=== PATIENT | female | born 1945 | race Caucasian/White ===

== ENCOUNTER 2025-07-20 18:28 | Inpatient (IN) | payer MEDICARE, SELFPAY ==
[2025-07-20 14:05] VITALS: BP 206/115
--- NOTE | 2025-07-20 14:50 | ED.GENMED ---
History of Present Illness
General
Chief Complaint: Abdominal Symptoms
Time Seen by Provider: 07/20/25 14:18
History of Present Illness
History of Present Illness:
Patient presents to the emergency department with nausea, vomiting, epigastric discomfort. Recent diagnosis of duodenal ulcer from H. pylori. She was started on triple therapy with metronidazole, tetracycline, omeprazole. Notes that over the past
few days she has had incredible amounts of nausea and vomiting. She has not been able to tolerate any p.o. intake and feels very weak. Denies fevers or chills but endorses some rhinorrhea. No sore throat or cough. No body aches. Denies
diarrhea. Mild epigastric discomfort but no intense abdominal pain
Phy Exam
Physical Exam
Physical Exam:
GENERAL APPEARANCE: No acute distress, generally weak appearing
EYES lids/conjunctiva normal
EARS/NOSE/THROAT dry mucous membranes
HEAD/NECK Normocephalic atraumatic, neck is supple.
RESPIRATORY respiratory effort normal, speaks in full sentences, no accessory muscle use. Lungs clear to auscultation without rhonchi, wheezes, rales
CARDIAC Regular rate and rhythm, no edema.
ABDOMINAL Soft, mild tenderness in the epigastric region
MUSCLES/EXTREMITIES No abnormal range of motion, no swelling.
SKIN Warm, pink and dry. No rashes
NEUROLOGICAL Speech is clear and appropriate. Normal level of consciousness. 5/5 strength in all extremities.
PSYCH Normal mood and affect. Judgement/competence is appropriate
Course
Orders/Labs/Results
Orders:
Orders
07/20/25 14:38
0.9% Sodium Chloride 1000 ml [Nss] 1,000 ml IV BOLUS
Ondansetron Injectable [Zofran] 4 mg IV NOW STA
07/20/25 14:54
Pantoprazole [Protonix IV] 40 mg IV NOW STA
07/20/25 15:32
COVID-19 Antigen Urgent
Source: Nasal Swab
Complete Blood Count/With Diff Urgent
Comprehensive Metabolic Panel Urgent
Lipase Urgent
Influenza A+B Rapid Molecular Urgent
DELILAH Source: Nasal Swab
Specimen Description:
07/20/25 16:15
CT Abd/pelvis Wo Iv Cont Urgent
Comment:
Reason For Exam: pancreatitis, vomiting, epigastric pain
07/20/25 16:45
Ondansetron HCl [Zofran] 4 mg PO NOW STA
07/20/25 16:46
Lactated Ringers [Lr] 1,000 ml IV BOLUS
07/20/25 16:51
Ondansetron Injectable [Zofran] 4 mg IV NOW STA
07/20/25 17:12
Urinalysis Reflex To Culture Urgent
Date Specimen was Collected: 07/20/25
Time Specimen was Collected: 15:41
Abnormal Lab Results
07/20/25
15:32
RBC 3.71 L 10^6/uL
(4.20-5.40)
Hgb 11.3 L g/dL
(12.0-16.0)
Hct 32.1 L %
(37.0-47.0)
Absolute Neuts (auto) 6.8 H 10^3/uL
(1.4-6.5)
Neutrophils % 76.7 H %
(42.2-75.2)
Lymphocytes % 18.0 L %
(20.5-51.1)
Chloride 108 H mmol/L
(98-107)
Carbon Dioxide 21 L mmol/L
(22-30)
BUN 37 H mg/dl
(7-17)
Creatinine 1.5 H mg/dL
(0.6-1.0)
Glucose 123 H mg/dl
(70-99)
Calcium 12.4 H mg/dl
(8.4-10.2)
AST 42 H U/L
(14-36)
Alkaline Phosphatase 148 H U/L
(38-126)
Lipase 989 H U/L
(23-300)
07/20/25 15:32
07/20/25 15:32
Vital Signs
Initial and Last Documented VS:
Initial Vital Signs
Temp Pulse Resp BP Pulse Ox
97.8 F 89 16 206/115 99
07/20/25 14:05 07/20/25 14:05 07/20/25 14:05 07/20/25 14:05 07/20/25 14:05
Last Documented Vital Signs
Temp Pulse Resp BP Pulse Ox
97.8 F 73 13 139/72 97
07/20/25 14:05 07/20/25 16:00 07/20/25 16:00 07/20/25 15:11 07/20/25 16:08
*Pulse Oximetry
SaO2: 99
Oxygen Mode of Delivery: Room air
Patient hypoxic: no
*Critical Care Note
Total Time (30-74mins, 75-104mins- exclusive of procedures): Not Applicable
ED Attending Note
ED Attending Note
ED Attending Note:
hx of recent endoscopy with duodenal ulcers, H pylori positive
started on triple therapy but has been having worsening nausea/vomiting/epigastric discomfort
minimal PO intake over past few days
she is afebrile, hemodynamically stable
she appears weak and dehydrated. has tenderness in the epigastrium
labs with Cr 1.5 (apparently has some ckd but no baseline on file). Calcium 12.4. Lipase 989. bili/lfts look okay
CT abd/pelv without contrast does not show any obvious abnormality
giving IVF , antiemetics, IV PPI
admitting to hospitalist for possible pancreatitis
-
Portions of this chart may have been created with voice recognition software.� Occasional wrong word or��sound alike� substitutions may have occurred due to the inherent limitations of voice recognition software.
Discharge Plan
Departure
Patient Disposition: Admit
Date of Disposition: 07/20/25
Time of Disposition: 17:28
Presentation/result/management discussed w/ accepting MD/DO: Hospitalist
Discharge Problem:
Pancreatitis, Hypercalcemia, Dehydration
Prescriptions:
No Action
omeprazole 20 mg Tablet,Delayed Release (Dr/Ec)
20 mg PO DAILY
Referrals:
Demetris Haynes MD [Family Provider, Internal Medicine]
Interventions
Interventions:
*Risk Screen - Suicide Last Done: 07/20/25 15:36
*General Assessment Last Done: 07/20/25 15:36
*Neglect/Abuse Screening Last Done: 07/20/25 15:36
*ED COVID-19 Vaccine History Last Done: 07/20/25 15:36
*ED Influenza Vaccine History Last Done: 07/20/25 15:36
[facility] Fall Risk Assessment Tool Last Done: 07/20/25 15:40
BE-Agiffg-Siecgcjjhg Assessment Last Done: 07/20/25 16:08
Discharge Date and Time
Print Language: LATVIAN
[2025-07-20 15:11] VITALS: BP 139/72
[2025-07-20] MEDS: PROTONIX IV 40 MG IV (15:33)
[2025-07-20] MEDS: ZOFRAN 4 MG IV ×2 (15:33→17:11)
[2025-07-20] MEDS: NSS 1000 IV (15:33)
[2025-07-20 15:40] VITALS: BMI 30.3
[2025-07-20 15:44] LABS: Hematocrit 32.1 % (37.0-47.0); Hemoglobin 11.3 g/dL (12.0-16.0); Mean Corp Hgb Conc. 35.2 g/dL (33.0-37.0); Mean Corpuscular Volume 86.5 fL (81.0-99.0); Nucleated Red Blood Cells % 0 %; Platelet Count 334 10^3/uL (130-400); Red Cell Dist. Width 12.5 % (11.5-14.5)
[2025-07-20 16:00] LABS: COVID-19 Antigen Negative (Negative)
[2025-07-20 16:12] LABS: ALT (SGPT) 33 U/L (0-35); AST (SGOT) 42 U/L (14-36); Albumin 3.9 g/dl (3.5-5.0); Alkaline Phosphatase 148 U/L (38-126); Blood Urea Nitrogen 37 mg/dl (7-17); Calcium 12.4 mg/dl (8.4-10.2); Carbon Dioxide 21 mmol/L (22-30); Chloride 108 mmol/L (98-107); Estimated Creatinine Clearance 31 ml/min; Glucose 123 mg/dl (70-99); Lipase 989 U/L (23-300); Potassium 3.9 mmol/L (3.5-5.1); Sodium 136 mmol/L (135-145); Total Protein 6.3 g/dl (6.3-8.2); eGFR 35.01
[2025-07-20] MEDS: LR 1000 IV ×2 (17:11→21:07)
--- NOTE | 2025-07-20 18:20 | HPS.HSE ---
Family Physician
-
Family Physician: Demetris Haynes
Chief Complaint
-
nausea/vomiting/poor oral intake
History of Present Illness
Patient is an 80-year-old female with a recent diagnosis of a stomach ulcer which is positive for H. pylori. This was done for a family history of stomach cancer in her father. Patient was started on treatment for H. pylori and has had a bad
reaction to the medications. She started Pepcid, Pepto-Bismol, tetracycline, Flagyl on the day after Thanksgiving. For the last 3 days she has had trouble with eating and drinking, poor oral appetite, nausea and vomiting. She admits to chills but
no fevers. She denies any significant diarrhea but does admit to constipation with dark brown pebble-like stools. Last week, patient passed out on the bathroom floor. She denies any significant abdominal pain until palpation.
CAT scan done in the emergency department without oral or IV contrast is essentially unremarkable. Lipase elevated at 900 but I am not convinced that this is pancreatitis. Patient will be admitted.
Medical History
Past Medical History
Past Medical History: Reports Other
Additional Past Medical History:
Type 2 diabetes mellitus
Peptic ulcer disease with recent H. pylori diagnosis
Trigeminal neuralgia
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
Osteoarthritis
Chronic kidney disease stage unknown
Obstructive sleep apnea--CPAP requiring
Primary hyperparathyroidism
Past Surgical History: Reports Other
Additional Past Surgical History:
Cholecystectomy
Tonsillectomy
Bilateral knee replacements
Cataract surgery
Social History
Tobacco: Former Smoker (Quit tobacco years ago)
Alcohol: None
Drug: None
Personal:
Living: Alone
Family History
Family History: Other (Father had stomach cancer, father side had Parkinson's disease--mother side had diabetes)
Allergies / Home Medications
Allergies reflects when Allergies were last updated in [employer].
Home Medications with original date entered in [employer]
Allergy/Medication List:
Allergies
Allergy/AdvReac Type Severity Reaction Status Date / Time
carbamazepine (From Tegretol) Allergy Rash Verified 07/20/25 14:09
Penicillins Allergy Rash Verified 07/20/25 14:09
Home Medications
allopurinol 100 mg tablet 100 mg PO DAILY Gout 07/20/25
aspirin 81 mg tablet,delayed release 81 mg PO DAILY 07/20/25
atorvastatin 80 mg tablet (Lipitor) 80 mg PO DAILY High Cholesterol 07/20/25
bupropion HCl 150 mg 24 hr tablet, extended release (Wellbutrin XL) 150 mg PO DAILY Mental Health/Anxiety 07/20/25
cholecalciferol (vitamin D3) 50 mcg (2,000 unit) tablet (Vitamin D3) 50 mcg PO DAILY Supplement 07/20/25
cinacalcet 60 mg tablet 60 mg PO DAILY 07/20/25
clarithromycin 500 mg tablet 500 mg PO BID Infection 07/20/25
cyanocobalamin (vitamin B-12) 500 mcg tablet 500 mcg PO DAILY Supplement 07/20/25
furosemide 40 mg tablet (Lasix) 40 mg PO DAILY Fluid Retention/Swelling 07/20/25
gabapentin 800 mg tablet 800 mg PO HS Neurological Condition 07/20/25
guar gum 1 tbsp PO DAILY Constipation 07/20/25
icosapent ethyl 1 gram capsule 2 g PO BID Supplement 07/20/25
magnesium oxide 200 mg PO DAILY Supplement 07/20/25
metformin 500 mg tablet 500 mg PO QPM Diabetes 07/20/25
omeprazole 20 mg tablet,delayed release 40 mg PO BID Gastrointestinal Issue 07/20/25
therapeutic multivitamin 1 tab PO DAILY Supplement 07/20/25
zonisamide 50 mg capsule 150 mg PO DAILY 07/20/25
Review of Systems
-
History Source: Patient
Constitutional: Reports Chills; Denies Fever
EENT: Reports No Symptoms
Respiratory: Reports No Symptoms; Denies Cough or Trouble Breathing
Cardiac: Reports No Symptoms; Denies Chest Pain, Diaphoresis or Palpitations
Abdomen/GI: Reports Nausea, Vomiting and Constipated; Denies Abdominal Pain or Diarrhea
: Reports No Symptoms
Musculoskeletal: Reports Joint Pain
Skin: Reports No Symptoms
Neurological: Reports No Symptoms; Denies Dizzy or Headache
Endocrine: Reports No Symptoms
Hematologic/Lymphatic: Reports No Symptoms
Psych: Reports No Symptoms
Physical Exam
Vital Signs
Vital Signs
Temp Pulse Resp BP Pulse Ox
97.8 F 73 13 139/72 97
07/20/25 14:05 07/20/25 16:00 07/20/25 16:00 07/20/25 15:11 07/20/25 16:08
Physical Exam
General: Well Developed, Well Nourished and No Apparent Distress
HEENT: NormoCephalic, Anicteric and Other (exophthalmos left eye--mild ptosis and right facial droop from previous Smith's palsy)
Respiratory: Clear; No Wheezes, Rales, Rhonchi or Crackles
Cardiac: S1/S2 and Regular Rhythm
GI: Soft, Non Distended, Normal Bowel Sounds and Tender (Minimal tenderness in the epigastric area no guarding or rebound)
Rectal: Deferred by Provider
Musculoskeletal: No Clubbing, No Cyanosis and No Edema
Skin: Warm and Dry
Neuro: Awake, Alert and Nonfocal/grossly intact
Psych: Calm
Laboratory Results
-
07/20/25 15:32
07/20/25 15:32
Laboratory Results
Total Bilirubin 0.6 mg/dl (0.2-1.3) 07/20/25 15:32
AST 42 U/L (14-36) H 07/20/25 15:32
ALT 33 U/L (0-35) 07/20/25 15:32
Alkaline Phosphatase 148 U/L (38-126) H 07/20/25 15:32
Lipase 989 U/L (23-300) H 07/20/25 15:32
Impression/Plan
-
Patient is an 80-year-old female
Nausea/vomiting--this is likely due to the intolerance of Flagyl from her H. pylori treatment--I do not suspect pancreatitis or any other GI issues--patient has had poor oral intake for the last 3 days or so--ADMIT--continue lactated Ringer's, start
Protonix drip, IV doxycycline, IV Flagyl--clear liquid diet--Zofran--- once patient is able to tolerate solid food we will transition over to oral treatment for her H. pylori
Type 2 diabetes mellitus--patient is no longer taking metformin as it was stopped by her employee placement specialist--start sliding scale insulin--check hemoglobin A1c
Peptic ulcer disease with H. pylori--patient was recently diagnosed the day after and started taking Pepcid, Pepto-Bismol, tetracycline, Flagyl but is not tolerating the treatment--for now we will place on IV Protonix drip, IV
doxycycline and IV Flagyl
Trigeminal neuralgia--patient takes gabapentin sporadically--no active symptoms
Chronic kidney disease --stage unknown but presumed stage III--renal dose medications--follow creatinine
Primary hyperparathyroidism--continue Cinacalcet, continue IV fluids--follow calcium level
Vitamin B12 deficiency--continue B12 supplements
Hyperlipidemia--hold Lipitor for now
Obstructive sleep apnea--CPAP--patient may use her own if she has it
Gout--continue allopurinol as tolerated
Shingles with Smith's palsy--noted
DVT prophylaxis
CODE STATUS--full code
[2025-07-20 19:39] LABS: Urine Character Clear (Clear)
[2025-07-20 19:50] VITALS: BP 151/77
[2025-07-20 19:55] LABS: Urine Red Blood Cell 0-2 /HPF (0-2)
[2025-07-20 20:13] VITALS: BMI 29.9
[2025-07-20] MEDS: ZONEGRAN PO (20:45)
[2025-07-20] MEDS: FLAGYL 500 MG 100 IV (21:12)
[2025-07-20] MEDS: PROTONIX 100 IV (21:41)
[2025-07-20 22:18] LABS: Glucose - Point of Care 90 mg/dl (70-99)
--- NOTE | 2025-07-20 22:36 | TRANSFER ---
Received pt from ED on stretcher at 1945 w dx of intolerance to medication - family at the bedside. Pt denies pain or discomfort and denied n/v. VS WNL. IVF and IV medications as ordered. Patient is refusing to take any PO medication d/t recent
medication intolerance with n/v. This RN explained the importance of taking the PO meds, patient verbalized that she hasn't taken these medications in days and does not feel like she needs to take them now. Assessments as documented. Call patel
within reach, bed in lowest position. Care ongoing.
[2025-07-20] MEDS: VIBRAMYCIN 260 MG IV (22:49)
[2025-07-20] MEDS: NEURONTIN PO (23:00)
[2025-07-20 23:29] VITALS: BP 160/76
[2025-07-21] MEDS: FLAGYL 500 MG 100 IV ×3 (04:40→21:47)
[2025-07-21 06:00] VITALS: BMI 29.9
[2025-07-21] MEDS: PROTONIX 100 IV ×2 (07:29→17:19)
[2025-07-21] MEDS: VIBRAMYCIN 260 MG IV ×2 (07:30→21:51)
[2025-07-21 07:51] LABS: Hematocrit 27.2 % (37.0-47.0); Hemoglobin 9.4 g/dL (12.0-16.0); Mean Corp Hgb Conc. 34.6 g/dL (33.0-37.0); Mean Corpuscular Volume 85.8 fL (81.0-99.0); Platelet Count 289 10^3/uL (130-400); Red Cell Dist. Width 13.0 % (11.5-14.5)
[2025-07-21 08:16] LABS: ALT (SGPT) 39 U/L (0-35); AST (SGOT) 50 U/L (14-36); Albumin 3.1 g/dl (3.5-5.0); Alkaline Phosphatase 127 U/L (38-126); Blood Urea Nitrogen 37 mg/dl (7-17); Calcium 11.8 mg/dl (8.4-10.2); Carbon Dioxide 18 mmol/L (22-30); Chloride 111 mmol/L (98-107); Estimated Creatinine Clearance 30 ml/min; Glucose 79 mg/dl (70-99); Lipase 737 U/L (23-300); Magnesium 1.9 mg/dl (1.6-2.3); Potassium 3.7 mmol/L (3.5-5.1); Sodium 137 mmol/L (135-145); Total Protein 5.2 g/dl (6.3-8.2); eGFR 35.01
[2025-07-21 08:17] LABS: Glucose - Point of Care 74 mg/dl (70-99)
[2025-07-21 08:32] VITALS: BP 152/83
--- NOTE | 2025-07-21 08:37 | PTCARENOTE ---
P feeling slightly nauseous, juices encouraged due to bs of 74. PO meds to be given when pt feels a little better.
[2025-07-21 08:45] LABS: TSH 0.73 uIU/ml (0.47-4.68)
[2025-07-21 10:17] LABS: Troponin I 0.027 ng/ml
[2025-07-21] MEDS: D5/0.9% SODIUM CHLORIDE 1000 IV (10:30)
[2025-07-21] MEDS: VITAMIN B-12 PO (10:47)
[2025-07-21] MEDS: ZONEGRAN PO (10:47)
[2025-07-21] MEDS: WELLBUTRIN XL (24 hour extended release) PO (10:47)
[2025-07-21] MEDS: ZYLOPRIM PO (10:47)
[2025-07-21] MEDS: VITAMIN D3 (cholecalciferol) PO (10:47)
[2025-07-21] MEDS: SENSIPAR PO (10:48)
[2025-07-21] MEDS: LASIX PO (10:48)
[2025-07-21] MEDS: LR IV (10:49)
--- NOTE | 2025-07-21 11:25 | W.PN.HOSP.TC ---
Today's Communication/Plan
-
change IVF to D5NSS
add bismuth to H.Pylori regimen
if truly cannot tolerate, consider GI or ID consult for alternative treatment plan
Assessment / Plan
Assessment / Plan
pt is an 80 year old female
Nausea/vomiting--this is likely due to the intolerance of Flagyl from her H. 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
Protonix drip, IV doxycycline, IV Flagyl--clear liquid diet--Zofran--- once patient is able to tolerate solid food we will transition over to oral treatment for her H. pylori--hopefully the IV flagyl will not make her nauseous either (consider
stopping IF nausea not abating) but would try to keep for H. Pylori treatment--adding bismuth back to regimen too
Type 2 diabetes mellitus--patient is no longer taking metformin as it was stopped by her automation lead--start sliding scale insulin--hemoglobin A1c pending
Peptic ulcer disease with H. pylori--patient was recently diagnosed the day after and started taking Pepcid, Pepto-Bismol, tetracycline, Flagyl but is not tolerating the treatment--for now we will place on IV Protonix drip, IV
doxycycline and IV Flagyl--add bismuth back
Trigeminal neuralgia--patient takes gabapentin sporadically--no active symptoms
Chronic kidney disease --stage unknown but presumed stage III--renal dose medications--follow creatinine--stable at 1.5
Primary hyperparathyroidism--continue Cinacalcet, continue IV fluids--follow calcium level
Vitamin B12 deficiency--continue B12 supplements
Hyperlipidemia--hold Lipitor for now
Obstructive sleep apnea--CPAP--patient may use her own if she has it
Gout--continue allopurinol as tolerated
Hx of Shingles with Smith's palsy--noted
DVT prophylaxis
CODE STATUS--full code
Anticipated Discharge: > 48 hours
Subjective/Interval History
-
Date of Service: July 21, 2025
pt still nauseous and does not want anything more than clear liquids--BS 74 this AM--changed IVF to D5
Objective Data
-
Labs:
Laboratory Results
07/21/25
07:13
WBC 7.9
Hgb 9.4 L
Hct 27.2 L
Plt Count 289
Sodium 137
Potassium 3.7
Chloride 111 H
Carbon Dioxide 18 L
BUN 37 H
Creatinine 1.5 H
Glucose 79
Calcium 11.8 H
Total Bilirubin 0.6
AST 50 H
ALT 39 H
Alkaline Phosphatase 127 H
Vital Signs:
max temp for 24 hours
07/20/25
19:50
Temp 98.9 F
Vital Signs
Temp Pulse Resp BP Pulse Ox
97.9 F 106 18 152/83 98
07/21/25 08:32 07/21/25 08:32 07/21/25 08:32 07/21/25 08:32 07/21/25 08:32
I&O
07/20/25 07/21/25 07/22/25
06:59 06:59 06:59
Intake Total 900 / 900
Balance 900 / 900
Review of Systems
-
All other systems: Reviewed and negative
Abdomen/GI: Reports Nausea; Denies Abdominal Pain or Vomiting
Physical Exam
-
General: Well Developed, Well Nourished and No Apparent Distress
HEENT: Normocephalic and Atraumatic; Negative Oxygen
Respiratory: Clear to Auscultation; Negative Wheezes or Rhonchi
Cardiac: Regular Rhythm and S1/S2; Negative Murmur
GI: Soft, Nontender, Nondistended and Normal Bowel Sounds
Musculoskeletal: No Clubbing, No Cyanosis and No Edema
Neuro: Awake and Alert
Psych: Calm
[2025-07-21 11:37] LABS: Glucose - Point of Care 120 mg/dl (70-99)
[2025-07-21] MEDS: ZOFRAN 4 MG IV (12:12)
[2025-07-21] MEDS: PINK BISMUTH PO ×2 (13:01→21:44)
[2025-07-21 13:08] LABS: Glycohemoglobin (HgbA1c) 5.3 % (4.0-5.9)
--- NOTE | 2025-07-21 13:36 | CM ---
CM met with pt at bedside.
Pt lives alone in a split level home. Ind prior to admission. CPAP HS.
+ HC history years ago and no SNF history.
Confirmed PCP is Demetris Haynes and pharmacy is [facility].
Anticipated discharge dispo home no needs vs home with VN pending hospital course.
[2025-07-21 15:30] VITALS: BP 151/73
[2025-07-21] MEDS: COMPAZINE 5 MG IV (16:48)
[2025-07-21 16:54] LABS: Glucose - Point of Care 105 mg/dl (70-99)
--- NOTE | 2025-07-21 18:01 | PTCARENOTE ---
Family member is requesting a cognitive evaluation from occupational therapy. There are concerns about pt's cognition.
[2025-07-21] MEDS: PINK BISMUTH 525 MG PO (18:05)
[2025-07-21] MEDS: LOVENOX 30 MG SC (18:06)
[2025-07-21] MEDS: ZONEGRAN 100 MG PO (18:07)
[2025-07-21 21:35] LABS: Glucose - Point of Care 104 mg/dl (70-99)
[2025-07-21 23:00] VITALS: BP 150/72
[2025-07-21] MEDS: NEURONTIN PO (23:04)
[2025-07-22] MEDS: PROTONIX 100 IV ×3 (03:04→23:03)
[2025-07-22] MEDS: D5/0.9% SODIUM CHLORIDE 1000 IV ×2 (03:06→19:34)
[2025-07-22 03:41] VITALS: BMI 30.9
[2025-07-22] MEDS: FLAGYL 500 MG 100 IV ×2 (06:08→13:05)
[2025-07-22 07:00] VITALS: BP 154/80
[2025-07-22 07:58] LABS: Hematocrit 26.9 % (37.0-47.0); Hemoglobin 9.3 g/dL (12.0-16.0); Mean Corp Hgb Conc. 34.6 g/dL (33.0-37.0); Mean Corpuscular Volume 87.6 fL (81.0-99.0); Platelet Count 216 10^3/uL (130-400); Red Cell Dist. Width 12.8 % (11.5-14.5)
[2025-07-22 08:00] LABS: Glucose - Point of Care 83 mg/dl (70-99)
[2025-07-22 08:31] LABS: Lipase 779 U/L (23-300)
--- NOTE | 2025-07-22 08:41 | W.PN.HOSP.TC ---
Today's Communication/Plan
-
see plan
Assessment / Plan
Assessment / Plan
Gen: NAD, AAOx3.
Eyes: EOMI, PERRLA, no scleral icterus.
Neck: supple.
CV: RRR, +S1/S2, no m/r/g.
Resp: CTAB, no rales, wheezes, or rhonchi.
Abd: +BS, soft, NT, ND
Skin: No rashes.
Neuro: CN 2-12 intact, non-focal.
Psych: Normal mood and affect.
CT A/P w/o contrast: No convincing acute process in the abdomen or pelvis within the limitations of unenhanced technique. Left renal angiomyolipoma. Nonobstructing left renal calculi.
Nausea/vomiting:
-PUD, diagnosed 07/12 and was started taking Pepcid/Pepto-Bismol/tetracycline/Flagyl but was not tolerating the treatment
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
-afebrile, no leukocytosis
-mild transaminitis, trend
-CT A/P above, unremarkable
-likely due to the intolerance of Flagyl from her H. pylori treatment
-despite lipase, pancreatitis less likely
-cont IV Flagyl/Doxy/PPI
-cont bismuth subsalicylate
-c/s GI (discussed with Dr. Borja)
-currently on clears, ADAT
-cont IVFs
Primary hyperparathyroidism:
-cont Cinacalcet (recent missed doses)
-cont IV fluids. Note pt also on lasix, cont for now for hypercalcemia.
-corrected Ca 13.0
Other problems:
DM2: Metformin stopped by pt's endorinologist, SSI/accuchecks
Vitamin B12 deficiency: cont B12 supplements
HLD: Statin on hold
RAUDEL on CPAP HS
Gout: cont allopurinol
h/o Shingles with Smith's palsy
CKD3b
Trigeminal neuralgia
FULL/Lovenox
Total time spent on today's encounter was 50 minutes which included time spent in counseling the patient/family regarding diagnosis and treatment plan as listed above, goals of care, and symptom management. Case was discussed with nursing staff,
specialists, and care coordinators/case management. All labs and imaging personally reviewed by me. Remainder the time spent in detailed review of previous records, lab data, imaging, and other medical provider documentation.
Anticipated Discharge: > 48 hours
Subjective/Interval History
-
Date of Service: July 22, 2025
Denies vomiting since admission. Reports persistent nausea. Denies CP/SOB/abd pain.
Objective Data
-
Labs:
Laboratory Results
07/22/25 07/22/25
07:03 08:30
WBC 6.9
Hgb 9.3 L
Hct 26.9 L
Plt Count 216 D
Sodium Cancelled Pending
Potassium Cancelled Pending
Chloride Cancelled Pending
Carbon Dioxide Cancelled Pending
BUN Cancelled Pending
Creatinine Cancelled Pending
Glucose Cancelled Pending
Calcium Cancelled Pending
Total Bilirubin Cancelled Pending
AST Cancelled Pending
ALT Cancelled Pending
Alkaline Phosphatase Cancelled Pending
Vital Signs:
Vital Signs
Temp Pulse Resp BP Pulse Ox
98 F 71 16 154/80 98
07/22/25 07:00 07/22/25 07:00 07/22/25 07:00 07/22/25 07:00 07/22/25 07:00
I&O
07/21/25 07/22/25 07/23/25
06:59 06:59 06:59
Intake Total 900 / 900 2140 / 2140
Balance 900 / 900 2140 / 2140
[2025-07-22 09:12] LABS: ALT (SGPT) 52 U/L (0-35); AST (SGOT) 64 U/L (14-36); Albumin 3.2 g/dl (3.5-5.0); Alkaline Phosphatase 123 U/L (38-126); Blood Urea Nitrogen 31 mg/dl (7-17); Calcium 12.4 mg/dl (8.4-10.2); Carbon Dioxide 21 mmol/L (22-30); Chloride 114 mmol/L (98-107); Estimated Creatinine Clearance 31 ml/min; Glucose 98 mg/dl (70-99); Magnesium 1.8 mg/dl (1.6-2.3); Potassium 3.7 mmol/L (3.5-5.1); Sodium 139 mmol/L (135-145); Total Protein 5.3 g/dl (6.3-8.2); eGFR 35.01
[2025-07-22] MEDS: VIBRAMYCIN 260 MG IV (09:13)
[2025-07-22] MEDS: LASIX 40 MG PO (09:21)
[2025-07-22] MEDS: PINK BISMUTH PO ×2 (09:22→13:05)
[2025-07-22] MEDS: SENSIPAR 60 MG PO (09:23)
[2025-07-22] MEDS: VITAMIN D3 (cholecalciferol) PO (09:37)
[2025-07-22] MEDS: VITAMIN B-12 PO (09:37)
[2025-07-22] MEDS: WELLBUTRIN XL (24 hour extended release) PO (09:37)
[2025-07-22] MEDS: ZONEGRAN PO (09:40)
[2025-07-22] MEDS: ZYLOPRIM PO (09:41)
[2025-07-22 10:16] VITALS: PULSE 66; O2SAT 99
--- NOTE | 2025-07-22 10:54 | CON.GI ---
Addendum entered and electronically signed by Lorrie Starr MD 07/22/25 15:00:
I saw and examined the patient.
The medical attendant's note was reviewed and I agree with the note.
80-year-old female who was recently diagnosed with peptic ulcer disease secondary to H. pylori infection 3 weeks back ( ) who was started on quadruple treatment after Thanksgi07/12/2025 admitted with nausea/vomiting/poor oral intake
-progressively worsened over the last 4 to 5 days. Patient denies any significant abdominal pain or pain radiation prior to admission.
-- Nausea/vomiting
-- Recent EGD peptic ulcer disease/H. pylori infection
-- Hypercalcemia secondary to primary hyperparathyroidism
plan
During hospital admission patient was noted to have elevated lipase around 989. Patient denies any syncope epigastric pain or pain radiation prior to admission. CT abdomen/pelvis was done without contrast showing no acute process suboptimal study
without contrast. Liver test showing mild transaminitis. Alkaline phosphatase, total bilirubin normal
Possible etiology for symptoms-adverse reaction with antibiotics versus hypercalcemia versus pancreatitis versus peptic ulcer disease versus gastroparesis etc.
-- Will recommend discontinuing current antibiotic treatment for H. pylori for now. Patient can follow-up with his outpatient GI to reassess h.pylori rx
-- Continue antiemetics as needed
-- Diet as tolerated. Low-fat low fiber diet
- mx of hypercalcemia as per medical team
-- If patient remains symptomatic will recommend further evaluation with MRI abdomen
-- Will obtain prior GI records
Original Note:
Consultation
-
Date/Time Consultation Requested: 07-22-25
Date/Time Consultation Performed: 07-22-25
Requesting Provider: Dr. Harsha Novoa
Performing Provider: Dr. Lorrie Starr
Reason for Consultation: N/V; H. pylori; peptic ulcer disease
Medical History
Chief Complaint / HPI
Chief Complaint: N/V; H. pylori; peptic ulcer disease
History of Present Illness:
Alexa Agin-Hale, 80-year-old with medical history significant for a recent diagnosis of peptic ulcer disease secondary to H. pylori infection on treatment since 07-12-25, is admitted to [facility] since 07-20-25 for nausea, vomiting, poor oral intake
and abdominal pain. She has had GI symptoms of intermittent abdominal pain, nausea, oscillating diarrhea and constipation since 09/08. Based on her family history of gastric cancer in father, she underwent an EGD a few weeks ago. She was found to
have a peptic ulcer and biopsy results were positive for H. pylori. She was started triple therapy with metronidazole, tetracycline and omeprazole on 07-12-25, and developed gradually worsening nausea, vomiting and inability to tolerate solid or
liquid foods. She was admitted to the hospital on 07-20-25. Admission work-up was notable for an unremarkable CT AP, mildly elevated transaminases and lipase 989. She was started on IV pantoprazole, doxycycline and metronidazole. Her nausea has
persisted, however it is somewhat improved and she has been able to keep clear liquids down without throwing up. Endorses some constipation, which has been intermittent this past year, and mentions having small pellet-like stools for the past year.
Afebrile and hemodynamically stable.
Past Medical History
Past Medical History: Other (Type 2 diabetes mellitus; Peptic ulcer disease; with recent H. 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
stage unknown; Obstructive sleep apnea on CPAP; Primary hyperparathyroidism)
Past Surgical History: Cholecystectomy, Orthopedic and Tonsilectomy
Social History
Tobacco: Former Smoker
Alcohol: None
Drug: None
Personal:
Living: Alone
Employment: Retired
Family History
Family History: Cancer (gastric cancer - father)
Allergies / Home Medications
Allergy/AdvReac Type Severity Reaction Status Date / Time
carbamazepine (From Tegretol) Allergy Rash Verified 07/20/25 14:09
Penicillins Allergy Rash Verified 07/20/25 14:09
�Medication �Instructions �Recorded
allopurinol 100 mg tablet 100 mg PO DAILY Gout 07/20/25
aspirin 81 mg tablet,delayed 81 mg PO DAILY 07/20/25
release
atorvastatin 80 mg tablet (Lipitor) 80 mg PO DAILY High Cholesterol 07/20/25
bupropion HCl 150 mg 24 hr tablet, 150 mg PO DAILY Mental 07/20/25
extended release (Wellbutrin XL) Health/Anxiety
cholecalciferol (vitamin D3) 50 50 mcg PO DAILY Supplement 07/20/25
mcg (2,000 unit) tablet (Vitamin
D3)
cinacalcet 60 mg tablet 60 mg PO DAILY 07/20/25
clarithromycin 500 mg tablet 500 mg PO BID Infection 07/20/25
cyanocobalamin (vitamin B-12) 500 500 mcg PO DAILY Supplement 07/20/25
mcg tablet
furosemide 40 mg tablet (Lasix) 40 mg PO DAILY Fluid 07/20/25
Retention/Swelling
gabapentin 800 mg tablet 800 mg PO HS Neurological Condition 07/20/25
guar gum 1 tbsp PO DAILY Constipation 07/20/25
icosapent ethyl 1 gram capsule 2 g PO BID Supplement 07/20/25
omeprazole 20 mg tablet,delayed 40 mg PO BID Gastrointestinal Issue 07/20/25
release
therapeutic multivitamin 1 tab PO DAILY Supplement 07/20/25
zonisamide 100 mg capsule 100 mg PO HS 07/20/25
zonisamide 50 mg capsule 50 mg PO DAILY 07/20/25
Review of Systems
-
All other systems: A 12 pt ROS was Negative except as stated above in HPI
Vital Signs
Temp Pulse Resp BP Pulse Ox
98 F 71 16 154/80 98
07/22/25 07:00 07/22/25 07:00 07/22/25 07:00 07/22/25 07:00 07/22/25 08:30
Physical Exam
Exam
General: No Apparent Distress and Comfortable
HEENT: Normocephalic, Anicteric and Atraumatic
Respiratory: Clear and Non Labored Respirations
Cardiac: S1/S2 and Regular Rhythm; Negative Murmur or Rub
GI: Soft, Non Distended and Tender (epigastric/LUQ, mild)
Genito-urinary: No Costovertebral Tender
Musculoskeletal: No Clubbing and No Cyanosis
Neuro: Awake, Alert, Oriented and Nonfocal/Grossly Intact
Psych: Calm
Results
WBC 6.9 10^3/uL (4.8-10.8) 07/22/25 07:03
Hgb 9.3 g/dL (12.0-16.0) L 07/22/25 07:03
Hct 26.9 % (37.0-47.0) L 07/22/25 07:03
MCV 87.6 fL (81.0-99.0) 07/22/25 07:03
Plt Count 216 10^3/uL (130-400) D 07/22/25 07:03
Absolute Neuts (auto) 6.8 10^3/uL (1.4-6.5) H 07/20/25 15:32
Sodium 139 mmol/L (135-145) 07/22/25 08:53
Potassium 3.7 mmol/L (3.5-5.1) 07/22/25 08:53
Chloride 114 mmol/L (98-107) H 07/22/25 08:53
Carbon Dioxide 21 mmol/L (22-30) L 07/22/25 08:53
BUN 31 mg/dl (7-17) H 07/22/25 08:53
Creatinine 1.5 mg/dL (0.6-1.0) H 07/22/25 08:53
Calcium 12.4 mg/dl (8.4-10.2) H 07/22/25 08:53
Total Bilirubin 0.6 mg/dl (0.2-1.3) 07/22/25 08:53
AST 64 U/L (14-36) H 07/22/25 08:53
ALT 52 U/L (0-35) H 07/22/25 08:53
Alkaline Phosphatase 123 U/L (38-126) 07/22/25 08:53
Lipase 779 U/L (23-300) H 07/22/25 07:03
Diagnostic Image Results:
07-20-25: CT AP: Pancrease within normal limits. Diverticulosis coli without evidence for diverticulitis. No convincing acute process in the abdomen or pelvis within the limitations of unenhanced technique. Left renal angiomyolipoma. Nonobstructing
left renal calculi.
Assessment / Plan
-
Alexa Greene, 80-year-old with medical history significant for a recent diagnosis of peptic ulcer disease secondary to H. pylori infection on treatment since 07-12-25, is admitted to [facility] since 07-20-25 for nausea, vomiting, poor oral intake
and abdominal pain. She has had GI symptoms of intermittent abdominal pain, nausea, oscillating diarrhea and constipation since 09/08. Based on her family history of gastric cancer in father, she underwent an EGD a few weeks ago. She was found to
have a peptic ulcer and biopsy results were positive for H. pylori. She was started triple therapy with metronidazole, tetracycline and omeprazole on 07-12-25, and developed gradually worsening nausea, vomiting and inability to tolerate solid or
liquid foods. She was admitted to the hospital on 07-20-25. Admission work-up was notable for an unremarkable CT AP, mildly elevated transaminases and lipase 989. She was started on IV pantoprazole, doxycycline and metronidazole. Her nausea has
persisted, however it is somewhat improved and she has been able to keep clear liquids down without throwing up. Endorses some constipation, which has been intermittent this past year, and mentions having small pellet-like stools for the past year.
Afebrile and hemodynamically stable.
Impression:
* H. pylori infection, on antibiotics since 07-12-25
* Peptic ulcer disease, likely secondary to above
* Nausea/vomiting/inability to tolerate solids/liquids likely secondary to metronidazole use
* Elevated transaminases
* Family history of gastric cancer in father
* Primary hyperparathyroidism
* Type II diabetes mellitus
* Chronic kidney disease IIIb
* RAUDEL on CPAP
* History of gout
* History of herpes zoster with Smith's palsy on the right
* Trigeminal neuralgia
* Hyperlipidemia
* Chronic BL LE venous insufficiency
Recommendations:
- Afebrile and hemodynamically stable.
- She has had a total of 10 days of antibiotics; PO tetracycline+metronidazole from 07-12-25 and IV doxycycline+metronidazole from 07-20-25 to present.
- Lipase elevated likely in setting of poor oral intake + vomiting; less likely to be pancreatitis (metronidazole-associated) as lipase is trending down; CT AP unremarkable for acute pathologies.
- Nausea/vomiting/inability to tolerate solids/liquids likely an adverse effect of metronidazole; IV metronidazole also carries a significant potential of causing nausea and vomiting.
- Stop antibiotics for now; can discuss treatment with her GI as an outpatient.
- Consider MRCP if symptoms persist/don't improve after stopping antibiotics.
- Continue PPI.
- Trial of regular diet.
- Follow CMP and CBC.
-
-
Thank you for consultation and allowing me to participate in the patient's care. Please call the carton folder GI physician during the after hours with any questions or concerns.
[2025-07-22 11:56] LABS: Glucose - Point of Care 117 mg/dl (70-99)
[2025-07-22 15:00] VITALS: BP 169/89
[2025-07-22 16:52] LABS: Glucose - Point of Care 111 mg/dl (70-99)
--- NOTE | 2025-07-22 17:17 | CM ---
H-Pylori, continues with abdominal s/s and discomfort. Lo-fat and lo-fiber diet. Discharge POC: Therapy rec for HH. referral placed.
[2025-07-22] MEDS: LOVENOX 30 MG SC (17:44)
[2025-07-22] MEDS: ZONEGRAN 100 MG PO (17:44)
[2025-07-22] MEDS: NEURONTIN 800 MG PO (21:01)
[2025-07-22 21:33] LABS: Glucose - Point of Care 130 mg/dl (70-99)
[2025-07-22 23:12] VITALS: BP 149/80
[2025-07-23] MEDS: D5/0.9% SODIUM CHLORIDE IV
[2025-07-23 05:53] VITALS: BMI 29.9
--- NOTE | 2025-07-23 06:25 | W.PN.GI.CBS2 ---
Addendum entered and electronically signed by Kali Schulz MD 07/23/25 08:13:
Given true amoxicillin allergy and intolerant of metronidazole will consult ID for recs on outpatient H pylori treatment after discharge and feeling better.
Original Note:
Today's Communication / Plan
-
Please see assessment and plan for details.
Assessment / Plan
-
1. Abdominal pain/nausea: With recently diagnosed duodenal ulcer and H. pylori, though symptoms much worse after starting quadruple therapy, likely antibiotic effect, now overall improving after stopping antibiotics. She did have significant
hypercalcemia that has been chronic and mildly elevated lipase, though clinically doubt pancreatitis. Again, she is overall improved and slept well last night with no difficulties, exam is benign. Will continue to trend labs, hydration, PPI twice
daily. Is okay to DC from a GI standpoint pending labs and if able to tolerate p.o. well, we discussed that she will touch base with her primary GI for different antibiotic regimen starting in a week or 2. If symptoms worsen then possible MRI if
mildly elevated lipase, though we will hold on this for now.
Subjective
Subjective
Date of Service: July 23, 2025
Patient feeling better overnight, slept well with no interruptions, no vomiting overnight. No fevers or chills, no melena.
Objective
Data Reviewed
Laboratory Data:
Laboratory Results
07/22/25 07:03
07/22/25 08:53
Laboratory Results
Magnesium 1.8 mg/dl (1.6-2.3) 07/22/25 08:53
Total Bilirubin 0.6 mg/dl (0.2-1.3) 07/22/25 08:53
AST 64 U/L (14-36) H 07/22/25 08:53
ALT 52 U/L (0-35) H 07/22/25 08:53
Alkaline Phosphatase 123 U/L (38-126) 07/22/25 08:53
Lipase 779 U/L (23-300) H 07/22/25 07:03
Vital Signs and I&O:
Vital Signs
Temp Pulse Resp BP Pulse Ox
97.9 F 71 17 149/80 98
07/22/25 23:12 07/22/25 23:12 07/22/25 23:12 07/22/25 23:12 07/22/25 23:12
I&O
07/21/25 07/22/25 07/23/25
06:59 06:59 06:59
Intake Total 900 / 900 2140 / 2140 4520 / 4520
Balance 900 / 900 2140 / 2140 4520 / 4520
Physical Exam
Physical Exam
General: NAD
Abdomen: normal bowel sounds, soft, no tenderness, no masses or bruits, no ascites
[2025-07-23 07:15] VITALS: BP 156/80
[2025-07-23 07:32] LABS: Glucose - Point of Care 99 mg/dl (70-99)
[2025-07-23] MEDS: VITAMIN D3 (cholecalciferol) 50 MCG PO (08:49)
[2025-07-23] MEDS: ZONEGRAN 50 MG PO (08:49)
[2025-07-23] MEDS: LASIX 40 MG PO (08:49)
[2025-07-23] MEDS: SENSIPAR 60 MG PO (08:49)
[2025-07-23] MEDS: VITAMIN B-12 500 MCG PO (08:49)
[2025-07-23] MEDS: ZYLOPRIM 100 MG PO (08:49)
[2025-07-23] MEDS: WELLBUTRIN XL (24 hour extended release) 150 MG PO (08:49)
[2025-07-23] MEDS: PROTONIX IV 40 MG IV (08:50)
[2025-07-23] MEDS: NSS (PRESERVATIVE FREE) 10 ML IV (08:51)
[2025-07-23 08:58] LABS: Hematocrit 28.8 % (37.0-47.0); Hemoglobin 9.6 g/dL (12.0-16.0); Mean Corp Hgb Conc. 33.3 g/dL (33.0-37.0); Mean Corpuscular Volume 90.9 fL (81.0-99.0); Nucleated Red Blood Cells % 0 %; Platelet Count 243 10^3/uL (130-400); Red Cell Dist. Width 12.9 % (11.5-14.5)
--- NOTE | 2025-07-23 09:17 | W.PN.HOSP.TC ---
Today's Communication/Plan
-
see plan
Assessment / Plan
Assessment / Plan
Gen: NAD, AAOx3.
Eyes: EOMI, PERRLA, no scleral icterus.
Neck: supple.
CV: remains RRR, +S1/S2, no m/r/g.
Resp: CTAB anteriorly, no rales, wheezes, or rhonchi.
Abd: remains +BS, soft, NT, ND
Skin: No rashes.
Neuro: CN 2-12 intact, non-focal.
Psych: Normal mood and affect.
CT A/P w/o contrast: No convincing acute process in the abdomen or pelvis within the limitations of unenhanced technique. Left renal angiomyolipoma. Nonobstructing left renal calculi.
Nausea/vomiting:
-PUD, diagnosed 07/12 and was started taking Pepcid/Pepto-Bismol/tetracycline/Flagyl but was not tolerating the treatment
-with poor PO intake for the 3 days [employer] ASSIST[employer]
-afebrile, no leukocytosis
-mild transaminitis, trend
-CT A/P above, unremarkable
-likely due to the intolerance of Flagyl from her H. pylori treatment
-despite lipase, pancreatitis less likely
-cont IV PPI
-cont bismuth subsalicylate
-GI following (discussed with Dr. Schulz)
-was on Doxy/Flagyl, now on hold. c/s ID with PCN allergy and intolerance to Flagyl.
-diet as tolerated
-cont IVFs
Primary hyperparathyroidism:
-cont Cinacalcet
-cont IV fluids. Note pt also on lasix, cont for now for hypercalcemia.
-corrected Ca now 11.6
Other problems:
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
Vitamin B12 deficiency: cont B12 supplements
HLD: Statin on hold
RAUDEL on CPAP HS
Gout: cont allopurinol
h/o Shingles with Smith's palsy
CKD3b
Trigeminal neuralgia
FULL/Lovenox
Anticipated Discharge: 24 - 48 hours
Subjective/Interval History
-
Date of Service: July 23, 2025
Denies abdominal pain. Tolerating solid food.
Objective Data
-
Labs:
Laboratory Results
07/23/25
07:39
WBC 8.8
Hgb 9.6 L
Hct 28.8 L
Plt Count 243
Sodium Pending
Potassium Pending
Chloride Pending
Carbon Dioxide Pending
BUN Pending
Creatinine Pending
Glucose Pending
Calcium Pending
Total Bilirubin Pending
AST Pending
ALT Pending
Alkaline Phosphatase Pending
Vital Signs:
Vital Signs
Temp Pulse Resp BP Pulse Ox
97.9 F 71 17 149/80 98
07/22/25 23:12 07/22/25 23:12 07/22/25 23:12 07/22/25 23:12 07/22/25 23:12
I&O
07/22/25 07/23/25 07/24/25
06:59 06:59 06:59
Intake Total 2140 / 2140 4520 / 4520
Balance 2140 / 2140 4520 / 4520
[2025-07-23] MEDS: D5/0.9% SODIUM CHLORIDE 1000 IV (09:48)
[2025-07-23 10:16] LABS: ALT (SGPT) 64 U/L (0-35); AST (SGOT) 71 U/L (14-36); Albumin 2.9 g/dl (3.5-5.0); Alkaline Phosphatase 122 U/L (38-126); Blood Urea Nitrogen 29 mg/dl (7-17); Calcium 10.7 mg/dl (8.4-10.2); Carbon Dioxide 22 mmol/L (22-30); Chloride 110 mmol/L (98-107); Estimated Creatinine Clearance 29 ml/min; Glucose 92 mg/dl (70-99); Lipase 1145 U/L (23-300); Potassium 3.0 mmol/L (3.5-5.1); Sodium 137 mmol/L (135-145); Total Protein 5.0 g/dl (6.3-8.2); eGFR 32.40
--- NOTE | 2025-07-23 10:24 | CON.ID ---
Addendum entered and electronically signed by Alexandria Foreman MD 07/25/25 09:26:
Correction: Amoxicillin 1g po Q8h. (NOT IV amoxicillin)
Original Note:
Consultation
-
Date/Time Consultation Requested: June 23, 2025 0813
Date/Time Consultation Performed: June 23, 2025 1030
Requesting Provider: Dr. Michael Schulz
Performing Provider: Dr. Alexandria Foreman
Reason for Consultation: H. pylori treatment, amoxicillin allergy and metronidazole intolerance
Chief Complaint / Past History
Chief Complaint
N/V, poor appetite
History of Present Illness
80-year-old female with history of type 2 diabetes mellitus, CKD, gout who presented to the ED July 20 due to several day history of intractable nausea vomiting and very poor appetite. Patient reports she had history of H. pylori about 20 years
ago treated but did not test for cure. She then recently developed GI symptoms and had upper endoscopy about 1-1/2-week before . Ulcers were found in the stomach, H. pylori positive. The day after Thanks, she started omeprazole,
bismuth, tetracycline, and metronidazole regimen. However soon after she started having nausea and vomiting. She had no appetite. She had difficulty keeping the medicines down. She did call her GI physician at [facility] who replaced the
metronidazole with clarithromycin. She did not start clarithromycin. patient came to the hospital instead at the insistence of her family. Lipase elevated. CT of the abdomen pelvis unremarkable. Hospitalist started her on IV doxycycline and IV
metronidazole but she continued to have symptoms. Both doxycycline and metronidazole discontinued. Today patient reports she is starting to feel better and ate her breakfast today. She reports oral penicillin allergy 30 years ago. She had rash,
no throat closing or shortness of breath. She never had amoxicillin.
Past History
Additional Past Medical History:
Type 2 diabetes mellitus
Peptic ulcer disease
H. pylori
Trigeminal neuralgia
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
Osteoarthritis
CKD3
Obstructive sleep apnea--CPAP requiring
Primary hyperparathyroidism
Gout
Additional Past Surgical History:
Cholecystectomy
Tonsillectomy
Bilateral knee replacements
Cataract surgery
Allergy History:
carbamazepine (From Tegretol) Allergy (Verified 07/20/25 14:09)
Rash
Penicillins Allergy (Verified 07/20/25 14:09)
Rash
Medications Reviewed: Yes
Current Antibiotics:
none
Social History
Alcohol: None
Drug: None
Personal:
Living: Alone
Family History
Family History: Other (Father - stomach cancer)
Review of Systems
Review of Systems
General: Chills and Change in Appetite; Negative Fever
HEENT: Negative Sinus Problems or Headache
Cardiovascular: Negative Chest Pain or Dyspnea
Respiratory: Negative Dyspnea or Cough
Gasteroenterology: Nausea; Negative Vomiting or Diarrhea
Genital / Urological: Negative Dysuria or Flank Pain
Endocrine: Weakness; Negative Fatigue
All systems: All other systems were reviewed and were negative
Vital Signs
Temp Pulse Resp BP Pulse Ox
97.9 F 65 16 156/80 98
07/23/25 07:15 07/23/25 07:15 07/23/25 07:15 07/23/25 07:15 07/23/25 07:15
Physical Exam
Physical Exam
Constitutional: No Acute Distress and Comfortable
Cardiovascular: Regular Rate and S1/S2
Pulmonary: Clear
Gastrointestinal: Soft, Non Tender, Non Distended and Normal Bowel Sounds
Genito-Urinary: Negative CVA Tenderness
Extremities: Negative Edema
Neurological: AO x 3
Lab / Diagnostic Study Results
07/23/25 07:39
07/23/25 07:39
Abs Immat Gran (auto) 0.0 10^3/uL (0-0.05) 07/23/25 07:39
Absolute Neuts (auto) 6.0 10^3/uL (1.4-6.5) 07/23/25 07:39
Absolute Lymphs (auto) 2.0 10^3/uL (1.2-3.4) 07/23/25 07:39
Absolute Monos (auto) 0.6 10^3/uL (0.1-0.6) 07/23/25 07:39
Absolute Basos (auto) 0.0 10^3/uL (0-0.2) 07/23/25 07:39
Immature Gran % 0.2 % (0-0.5) 07/23/25 07:39
Neutrophils % 68.0 % (42.2-75.2) 07/23/25 07:39
Lymphocytes % 23.0 % (20.5-51.1) 07/23/25 07:39
Monocytes % 7.0 % (1.7-9.3) 07/23/25 07:39
Eosinophils % 1.6 % (0-6) 07/23/25 07:39
Basophils % 0.2 % (0-2) 07/23/25 07:39
Ur Squamous Epith Cells 3-5 /LPF (Few) 07/20/25 19:36
Microbiology Results
Micro:
07/20/25 19:36 Urine Culture - Final
Urine No Significant Growth
07/20/25 15:32 Influenza Types A & B (PETER) - Final
Nasal Swab Negative for Influenza A & B, NAAT
Negative results must be combined with clinical observations
and patient history.
Nucleic Acid Amplification test (NAAT)performed on the
[employer] platform.
07/20/25 CT a/p: No convincing acute process in the abdomen or pelvis within the limitations of unenhanced technique. Left renal angiomyolipoma. Nonobstructing left renal calculi.
Assessment / Plan
# H. pylori infection
# Peptic ulcer disease
# Intolerant to H. pylori regimen (metronidazole)
# Remote hx of PCN allergy - rash
# CKD3
- H. pylori regimen limited at this point.
- I recommend trial of amoxicillin. Most individuals outgrow their penicillin allergy. Also some individuals with penicillin allergy tolerates amoxicillin due to the small difference in structure.
Patient is willing to try amoxicillin.
- Start the following regimen to complete 14 days, if tolerated:
Amoxicillin 1 g IV Q8h, take with food
Levofloxacin 500 mg po x 1 then 250 mg p.o. daily (renally dosed)
Omeprazole 40 mg p.o. twice daily, take half to 1 hour before meal. Omeprazole is not in the formulary. Patient can take her own medication.
- Monitor closely for side effects/allergy reaction.
Care Review
Plan reviewed with: Other (Pharmacist Nirmal)
[2025-07-23 11:35] VITALS: BP 141/64
[2025-07-23 12:02] LABS: Glucose - Point of Care 100 mg/dl (70-99)
[2025-07-23] MEDS: NON-FORMULARY ITEM 40 MG PO ×2 (13:42→21:35)
[2025-07-23] MEDS: KCL 40 MEQ PO ×2 (13:43→18:00)
[2025-07-23] MEDS: LEVAQUIN 500 MG PO (13:43)
[2025-07-23] MEDS: AMOXIL 1000 MG PO ×2 (14:35→21:35)
[2025-07-23 15:15] VITALS: BP 145/76
--- NOTE | 2025-07-23 16:20 | CM ---
Discharge POC: Therapy recommended SNF. Explained and provided [employer] list to patient. She will review and choose at least 4 preferences.
[2025-07-23 16:58] LABS: Glucose - Point of Care 80 mg/dl (70-99)
[2025-07-23] MEDS: NON-FORMULARY ITEM PO (17:50)
[2025-07-23] MEDS: LOVENOX 30 MG SC (18:00)
[2025-07-23] MEDS: ZONEGRAN 100 MG PO (18:00)
[2025-07-23] MEDS: NEURONTIN 800 MG PO (21:34)
[2025-07-23 22:48] LABS: Glucose - Point of Care 108 mg/dl (70-99)
[2025-07-23 23:18] VITALS: BP 134/98
[2025-07-24] MEDS: D5/0.9% SODIUM CHLORIDE 1000 IV (00:56)
[2025-07-24] MEDS: AMOXIL 1000 MG PO ×3 (05:37→22:22)
[2025-07-24 06:00] VITALS: BMI 30.7
--- NOTE | 2025-07-24 06:36 | W.PN.GI.CBS2 ---
Today's Communication / Plan
-
Please see assessment and plan for details.
Assessment / Plan
-
1. Abdominal pain/nausea: With recently diagnosed duodenal ulcer and H. pylori, though symptoms much worse after starting quadruple therapy, likely antibiotic (metronidazole) effect, now overall improving after stopping antibiotics. She did have
significant hypercalcemia that has been chronic and mildly elevated lipase, though clinically doubt pancreatitis, likely more elevated from renal insufficiency. She has tolerated amoxicillin without difficulty, has had 3 doses so far. Will await
morning labs including repeat creatinine and lipase, though if improving and symptoms improving is okay to DC from GI standpoint with antibiotic regimen per ID and PPI twice daily. If lipase or symptoms are worsening then we will likely check MRI,
though we will hold on this for now.
Subjective
Subjective
Date of Service: July 24, 2025
Patient feeling well overall, no nausea yesterday, tolerated diet, no fevers or chills, significant abdominal pain. She tolerated amoxicillin without difficulty.
Objective
Data Reviewed
Laboratory Data:
Laboratory Results
07/23/25 07:39
Laboratory Results
Magnesium 1.8 mg/dl (1.6-2.3) 07/22/25 08:53
Total Bilirubin 0.4 mg/dl (0.2-1.3) 07/23/25 07:39
AST 71 U/L (14-36) H 07/23/25 07:39
ALT 64 U/L (0-35) H 07/23/25 07:39
Alkaline Phosphatase 122 U/L (38-126) 07/23/25 07:39
Lipase 1145 U/L (23-300) H* 07/23/25 07:39
Vital Signs and I&O:
Vital Signs
Temp Pulse Resp BP Pulse Ox
97.5 F 70 16 134/98 99
07/23/25 23:18 07/23/25 23:18 07/23/25 23:18 07/23/25 23:18 07/23/25 23:18
I&O
07/22/25 07/23/25 07/24/25
06:59 06:59 06:59
Intake Total 2139 / 0 4520 / 4520 1800 / 1800
Balance 2139 4520 / 4520 1800 / 1800
Physical Exam
Physical Exam
General: NAD
Abdomen: normal bowel sounds, soft, no tenderness, no masses or bruits, no ascites
[2025-07-24 07:07] LABS: Glucose - Point of Care 86 mg/dl (70-99)
[2025-07-24 07:35] VITALS: BP 129/70
--- NOTE | 2025-07-24 07:52 | W.PN.HOSP.TC ---
Today's Communication/Plan
-
see plan
Assessment / Plan
Assessment / Plan
Gen: NAD, AAOx3.
Eyes: EOMI, PERRLA, no scleral icterus.
Neck: supple.
CV: RRR with frequent premature beats, +S1/S2, no m/r/g.
Resp: remains CTAB anteriorly, no rales, wheezes, or rhonchi.
Abd: continues to remain +BS, soft, NT, ND
Skin: No rashes.
Neuro: CN 2-12 intact, non-focal.
Psych: Normal mood and affect.
CT A/P w/o contrast: No convincing acute process in the abdomen or pelvis within the limitations of unenhanced technique. Left renal angiomyolipoma. Nonobstructing left renal calculi.
Appendix U/S: Nonvisualization of the appendix.
Nausea/vomiting:
-PUD, diagnosed 07/12 and was started taking Pepcid/Pepto-Bismol/tetracycline/Flagyl but was not tolerating the treatment
-with poor PO intake for the 3 days RHIA
-afebrile, no leukocytosis
-mild transaminitis, trend
-CT A/P above, unremarkable
-likely due to the intolerance of Flagyl from her H. pylori treatment
-despite lipase, pancreatitis less likely
-cont IV PPI
-cont bismuth subsalicylate
-GI following (discussed with Dr. Schulz)
-was on Doxy/Flagyl, Now on Levaquin and Amoxicillin as per ID
-diet as tolerated
-cont IVFs
Primary hyperparathyroidism:
-cont Cinacalcet
-corrected Ca now 10.1
-cont IV fluids for today. Note pt also on lasix, cont for now for hypercalcemia.
Other problems:
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
Vitamin B12 deficiency: cont B12 supplements
HLD: Statin on hold
RAUDEL on CPAP HS
Gout: cont allopurinol
h/o Shingles with Smith's palsy
CKD3b
Trigeminal neuralgia
FULL/Lovenox
Dispo: d/c tomorrow
Anticipated Discharge: Within 24 hours
Subjective/Interval History
-
Date of Service: July 24, 2025
No new complaints.
Objective Data
-
Labs:
Laboratory Results
07/24/25 07/24/25
05:33 06:00
Sodium Pending
Potassium Pending
Chloride Pending
Carbon Dioxide Pending
BUN Pending
Creatinine Pending
Glucose Pending
Calcium Pending
Total Bilirubin Pending
AST Pending
ALT Pending
Alkaline Phosphatase Pending
Vital Signs:
Vital Signs
Temp Pulse Resp BP Pulse Ox
97.5 F 70 16 134/98 99
07/23/25 23:18 07/23/25 23:18 07/23/25 23:18 07/23/25 23:18 07/23/25 23:18
I&O
07/23/25 07/24/25 07/25/25
06:59 06:59 06:59
Intake Total 4520 / 4520 1800 / 1800
Balance 4520 / 4520 1800 / 1800
[2025-07-24] MEDS: VITAMIN D3 (cholecalciferol) 50 MCG PO (09:34)
[2025-07-24] MEDS: VITAMIN B-12 500 MCG PO (09:34)
[2025-07-24] MEDS: LASIX 40 MG PO (09:34)
[2025-07-24] MEDS: ZONEGRAN 50 MG PO (09:34)
[2025-07-24] MEDS: SENSIPAR 60 MG PO (09:34)
[2025-07-24] MEDS: ZYLOPRIM 100 MG PO (09:34)
[2025-07-24] MEDS: LEVAQUIN 250 MG PO (09:34)
[2025-07-24] MEDS: WELLBUTRIN XL (24 hour extended release) 150 MG PO (09:34)
[2025-07-24 10:28] LABS: ALT (SGPT) 62 U/L (0-35); AST (SGOT) 57 U/L (14-36); Albumin 2.7 g/dl (3.5-5.0); Alkaline Phosphatase 115 U/L (38-126); Blood Urea Nitrogen 31 mg/dl (7-17); Calcium 9.1 mg/dl (8.4-10.2); Carbon Dioxide 19 mmol/L (22-30); Chloride 110 mmol/L (98-107); Estimated Creatinine Clearance 31 ml/min; Glucose 82 mg/dl (70-99); Lipase 676 U/L (23-300); Potassium 3.6 mmol/L (3.5-5.1); Sodium 135 mmol/L (135-145); Total Protein 4.7 g/dl (6.3-8.2); eGFR 35.01
--- NOTE | 2025-07-24 11:24 | W.PN.ID1 ---
Addendum entered and electronically signed by Alexandria Foreman MD 07/25/25 09:24:
Correction: Amoxicillin 1 g po Q8h, take with food through 08/06/25 am. (NOT IV amoxicillin)
Original Note:
Date of Service
Date of Service: July 24, 2025
Today's Communication
Continue H. pylori regimen. See below.
Assessment / Plan
# H. pylori infection
# Peptic ulcer disease
# Intolerant to H. pylori regimen (metronidazole)
# Remote hx of PCN allergy - rash
# CKD3
- Tolerating amoxicillin so far. (Most individuals outgrow their penicillin allergy. Also some individuals with penicillin allergy tolerates amoxicillin due to the small difference in structure)
- Continue the following H. pylori regimen to complete 14 days
Amoxicillin 1 g IV Q8h, take with food through 08/06/25 am.
Levofloxacin 250 mg p.o. daily (renally dosed) through 08/05/25
Omeprazole 40 mg p.o. twice daily, take half to 1 hour before meal through 08/05/25.
- H. pylori breathe test at 4 or more weeks after completion of above regimen, to asses for test of cure.
- Follow-up with her GI.
Chief Complaint
-: Other (H.pylori)
Subjective / Review of Systems
No nausea. Eating well. Tolerating amoxicillin.
Vital Signs / Physical Exam
Vital Signs
Vital Signs
Temp Pulse Resp BP Pulse Ox
98.6 F 68 15 129/70 100
07/24/25 07:35 07/24/25 07:35 07/24/25 07:35 07/24/25 07:35 07/24/25 07:35
Physical Exam
Constitutional: No Acute Distress and Comfortable
Cardiovascular: Regular Rate and S1/S2
Pulmonary: Clear
Gastrointestinal: Soft, Non Tender, Non Distended and Normal Bowel Sounds
Genito-Urinary: Negative CVA Tenderness
Neurological: AO x 3
Objective Data
Lab Data
Lab Results
07/23/25 07:39
07/24/25 08:11
Estimated Creat Clear 31 ml/min 07/24/25 08:11
Total Bilirubin 0.4 mg/dl (0.2-1.3) 07/24/25 08:11
AST 57 U/L (14-36) H 07/24/25 08:11
ALT 62 U/L (0-35) H 07/24/25 08:11
Alkaline Phosphatase 115 U/L (38-126) 07/24/25 08:11
Most recent labs reviewed.
Micro Results:
07/20/25 19:36 Urine Culture - Final
Urine No Significant Growth
07/20/25 15:32 Influenza Types A & B (PETER) - Final
Nasal Swab Negative for Influenza A & B, NAAT
Negative results must be combined with clinical observations
and patient history.
Nucleic Acid Amplification test (NAAT)performed on the
[employer] ([employer]) platform.
07/20/25 CT a/p: No convincing acute process in the abdomen or pelvis within the limitations of unenhanced technique. Left renal angiomyolipoma. Nonobstructing left renal calculi.
[2025-07-24 11:48] LABS: Glucose - Point of Care 77 mg/dl (70-99)
[2025-07-24 12:16] VITALS: BP 121/66; PULSE 61
[2025-07-24] MEDS: NON-FORMULARY ITEM 40 MG PO ×2 (12:40→17:15)
--- NOTE | 2025-07-24 12:43 | CM ---
Met with pt and JESUS Mckenzie chairside. Pt was informed about PT rec for SNF. All questions answered. #1 choice is [facility]. Pt provided 6 referrals.
Plan: tentative DC for tomorrow to SNF when bed is available
[2025-07-24 15:35] VITALS: BP 131/71
[2025-07-24] MEDS: D5/0.9% SODIUM CHLORIDE IV (16:38)
[2025-07-24] MEDS: LOVENOX 30 MG SC (17:17)
[2025-07-24] MEDS: ZONEGRAN 100 MG PO (17:17)
[2025-07-24 17:28] LABS: Glucose - Point of Care 80 mg/dl (70-99)
[2025-07-24 22:03] LABS: Glucose - Point of Care 93 mg/dl (70-99)
[2025-07-24] MEDS: NEURONTIN 800 MG PO (22:22)
[2025-07-24 23:18] VITALS: BP 128/70
[2025-07-25] MEDS: D5/0.9% SODIUM CHLORIDE IV (01:30)
[2025-07-25] MEDS: AMOXIL 1000 MG PO (05:15)
[2025-07-25 05:32] VITALS: BMI 30.5
--- NOTE | 2025-07-25 06:07 | W.PN.GI.CBS2 ---
Today's Communication / Plan
-
Please see assessment and plan for details.
Assessment / Plan
-
1. Abdominal pain/nausea: With recently diagnosed duodenal ulcer and H. pylori, though symptoms much worse after starting quadruple therapy, likely antibiotic (metronidazole) effect, now overall improving after stopping antibiotics. Her lipase was
mildly elevated likely secondary to renal insufficiency, improved yesterday, and again has improving symptoms. At this point would continue PPI twice daily and antibiotics per ID, has tolerated amoxicillin without difficulty. Will hold on further
GI workup for now.
We will sign off for now, though please call back with any further questions.
Subjective
Subjective
Date of Service: July 25, 2025
Patient overall feeling much better, appetite is improved, no nausea, no vomiting. No fevers or chills overnight.
Objective
Data Reviewed
Laboratory Data:
Laboratory Results
07/23/25 07:39
Laboratory Results
Magnesium 1.8 mg/dl (1.6-2.3) 07/22/25 08:53
Total Bilirubin 0.4 mg/dl (0.2-1.3) 07/24/25 08:11
AST 57 U/L (14-36) H 07/24/25 08:11
ALT 62 U/L (0-35) H 07/24/25 08:11
Alkaline Phosphatase 115 U/L (38-126) 07/24/25 08:11
Lipase 676 U/L (23-300) H 07/24/25 08:11
Vital Signs and I&O:
Vital Signs
Temp Pulse Resp BP Pulse Ox
98.1 F 67 18 128/70 98
07/24/25 23:18 07/24/25 23:18 07/24/25 23:18 07/24/25 23:18 07/24/25 23:18
I&O
07/23/25 07/24/25 07/25/25
06:59 06:59 06:59
Intake Total 4520 / 4520 1800 / 1800 1919
Balance 4520 / 4520 1800 / 1800 1919
Physical Exam
Physical Exam
General: NAD
Abdomen: normal bowel sounds, soft, no tenderness, no masses or bruits, no ascites
--- NOTE | 2025-07-25 07:22 | W.PN.HOSP.TC ---
Addendum entered and electronically signed by Harsha Novoa MD 07/25/25 10:19:
Total time spent on d/c = 33 min. This included today's physical exam, progress note, review of laboratory and diagnostic data, preparation of discharge documents and prescriptions, and discussions about the pt's hospital course and discharge plan
with the patient and other medical accountant involved in the patient's care.
Original Note:
Today's Communication/Plan
-
d/c
Assessment / Plan
Assessment / Plan
Gen: NAD, AAOx3.
Eyes: EOMI, PERRLA, no scleral icterus.
Neck: supple.
CV: RRR, +S1/S2, no m/r/g.
Resp: continues to remain CTAB anteriorly, no rales, wheezes, or rhonchi.
Abd: +BS, soft, NT, ND
Skin: No rashes.
Neuro: CN 2-12 intact, non-focal.
Psych: Normal mood and affect.
CT A/P w/o contrast: No convincing acute process in the abdomen or pelvis within the limitations of unenhanced technique. Left renal angiomyolipoma. Nonobstructing left renal calculi.
Appendix U/S: Nonvisualization of the appendix.
Nausea/vomiting:
-PUD, diagnosed 07/12 and was started taking Pepcid/Pepto-Bismol/tetracycline/Flagyl but was not tolerating the treatment
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
-afebrile, no leukocytosis
-mild transaminitis, trend
-CT A/P above, unremarkable
-likely due to the intolerance of Flagyl from her H. pylori treatment
-despite lipase, pancreatitis less likely
-cont IV PPI
-cont bismuth subsalicylate
-GI saw in c/s
-was on Doxy/Flagyl, Now on Levaquin (through 08/05) and Amoxicillin (through ) as per ID
-diet as tolerated
-s/p IVFs
Primary hyperparathyroidism:
-cont Cinacalcet
-calcium now normal s/p IVFs and lasix
Other problems:
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
Vitamin B12 deficiency: cont B12 supplements
HLD: Statin on hold with transaminitis (which is mild)
RAUDEL on CPAP HS
Gout: cont allopurinol
h/o Shingles with Smith's palsy
CKD3b
Trigeminal neuralgia
Obesity due to excess calories
FULL/Lovenox
Medically cleared for d/c, CM aware.
Anticipated Discharge: Today
Subjective/Interval History
-
Date of Service: July 25, 2025
No new complaint.s
Objective Data
-
Labs:
Laboratory Results
07/25/25
06:22
Sodium Pending
Potassium Pending
Chloride Pending
Carbon Dioxide Pending
BUN Pending
Creatinine Pending
Glucose Pending
Calcium Pending
Vital Signs:
Vital Signs
Temp Pulse Resp BP Pulse Ox
98.1 F 67 18 128/70 98
07/24/25 23:18 07/24/25 23:18 07/24/25 23:18 07/24/25 23:18 07/24/25 23:18
I&O
07/24/25 07/25/25 07/26/25
06:59 06:59 06:59
Intake Total 1800 / 1800 1919
Balance 1800 / 1800 1919
[2025-07-25 07:40] VITALS: BP 134/65
[2025-07-25 07:51] LABS: Glucose - Point of Care 77 mg/dl (70-99)
[2025-07-25 08:00] LABS: Blood Urea Nitrogen 33 mg/dl (7-17); Calcium 8.7 mg/dl (8.4-10.2); Carbon Dioxide 19 mmol/L (22-30); Chloride 108 mmol/L (98-107); Estimated Creatinine Clearance 27 ml/min; Glucose 70 mg/dl (70-99); Potassium 3.5 mmol/L (3.5-5.1); Sodium 134 mmol/L (135-145); eGFR 30.13
[2025-07-25] MEDS: NON-FORMULARY ITEM 40 MG PO (08:06)
--- NOTE | 2025-07-25 09:16 | W.PN.ID1 ---
Date of Service
Date of Service: July 25, 2025
Today's Communication
Amoxicillin 1000 mg poQ8h, take with food through 08/06/25 am.
Levofloxacin 250 mg p.o. daily (renally dosed) through 08/05/25
Omeprazole 40 mg p.o. twice daily, take half to 1 hour before meal through 08/05/25.
Assessment / Plan
# H. pylori infection
# Peptic ulcer disease
# Intolerant to metronidazole
# Remote hx of PCN allergy - rash
# CKD3
- Tolerating amoxicillin so far. (Most individuals outgrow their penicillin allergy. Also some individuals with penicillin allergy tolerates amoxicillin due to the small difference in structure)
- Continue the following H. pylori regimen to complete 14 days
Amoxicillin 1000 mg poQ8h, take with food through 08/06/25 am.
Levofloxacin 250 mg p.o. daily (renally dosed) through 08/05/25
Omeprazole 40 mg p.o. twice daily, take half to 1 hour before meal through 08/05/25.
- H. pylori breathe test at 4 or more weeks after completion of above regimen, to asses for test of cure.
- Follow-up with her GI.
Chief Complaint
-: Other (H.pylori)
Subjective / Review of Systems
Continues to tolerate meds. No rash. No N/V.
Vital Signs / Physical Exam
Vital Signs
Vital Signs
Temp Pulse Resp BP Pulse Ox
98.0 F 68 16 134/65 100
07/25/25 07:40 07/25/25 07:40 07/25/25 07:40 07/25/25 07:40 07/25/25 07:40
Physical Exam
Constitutional: No Acute Distress and Comfortable
Cardiovascular: Regular Rate and S1/S2
Pulmonary: Clear
Gastrointestinal: Soft, Non Tender, Non Distended and Normal Bowel Sounds
Genito-Urinary: Negative CVA Tenderness
Neurological: AO x 3
Objective Data
Lab Data
Lab Results
07/23/25 07:39
07/25/25 06:22
Estimated Creat Clear 27 ml/min 07/25/25 06:22
Total Bilirubin 0.4 mg/dl (0.2-1.3) 07/24/25 08:11
AST 57 U/L (14-36) H 07/24/25 08:11
ALT 62 U/L (0-35) H 07/24/25 08:11
Alkaline Phosphatase 115 U/L (38-126) 07/24/25 08:11
Most recent labs reviewed.
Micro Results:
07/20/25 19:36 Urine Culture - Final
Urine No Significant Growth
07/20/25 15:32 Influenza Types A & B (PETER) - Final
Nasal Swab Negative for Influenza A & B, NAAT
Negative results must be combined with clinical observations
and patient history.
Nucleic Acid Amplification test (NAAT)performed on the
[employer] platform.
07/20/25 CT a/p: No convincing acute process in the abdomen or pelvis within the limitations of unenhanced technique. Left renal angiomyolipoma. Nonobstructing left renal calculi.
Care Review
Plan reviewed with: Physician (Dr. Novoa)
--- NOTE | 2025-07-25 09:35 | CM ---
Addendum entered by Indy Hoffman 07/25/25 10:32:
Met with patient at bedside
IMM benefit explained; form signed @ 1030
Ambulance fern picker [phone]
Original Note:
Spoke with patient via phone to discuss Discharge Plan; per Attending, patient is stable for discharge; Referral to [facility] accepted; bed available today
Plan: Discharge to [facility] via Ambulance today
Report # [id number]
[2025-07-25] MEDS: ZYLOPRIM 100 MG PO (09:36)
[2025-07-25] MEDS: VITAMIN D3 (cholecalciferol) 50 MCG PO (09:36)
[2025-07-25] MEDS: WELLBUTRIN XL (24 hour extended release) 150 MG PO (09:36)
[2025-07-25] MEDS: SENSIPAR 60 MG PO (09:36)
[2025-07-25] MEDS: VITAMIN B-12 500 MCG PO (09:36)
[2025-07-25] MEDS: LEVAQUIN 250 MG PO (09:36)
[2025-07-25] MEDS: ZONEGRAN 50 MG PO (09:36)
[2025-07-25] MEDS: LASIX 40 MG PO (09:46)
[2025-07-25 10:19] VITALS: BMI 30.5
[2025-07-25 11:39] VITALS: BP 120/61
[2025-07-25 11:45] LABS: Glucose - Point of Care 81 mg/dl (70-99)
--- NOTE | 2025-07-25 14:31 | W.DCSUMMARY ---
Discharge Summary
Discharge Data
Date of Admission: 07/20/25
Date of Discharge: 07/25/25
-
Pending Results: No
Hospital Course
Primary diagnoses:
Nausea and vomiting due to antibiotic intolerance
Hypercalcemia due to primary hyperparathyroidism
Secondary diagnoses:
Peptic ulcer disease
Type 2 diabetes mellitus
Vitamin B12 deficiency: cont B12 supplements
Hyperlipidemia
Obstructive sleep on CPAP HS
Gout
h/o Shingles with Smith's palsy
Chronic kidney disease 3b
Trigeminal neuralgia
Obesity due to excess calories
Consultants:
Infectious disease
Gastroenterology
Imaging:
CT A/P w/o contrast: No convincing acute process in the abdomen or pelvis within the limitations of unenhanced technique. Left renal angiomyolipoma. Nonobstructing left renal calculi.
Appendix U/S: Nonvisualization of the appendix.
80-year-old female presented with nausea, vomiting, poor oral intake as outlined in the H&P done on admission. Hospital course per problem list:
Nausea and vomiting due to antibiotic intolerance: The patient had PUD, diagnosed 07/12 and was taking Pepcid/Pepto-Bismol/tetracycline/Flagyl but was not tolerating the treatment. 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 Imaging above. She was
afebrile and had no leukocytosis. She had a mild transaminitis. Her nausea and vomiting were likely due to intolerance of Flagyl and possibly tetracycline from her H. pylori treatment. Despite her elevated lipase, pancreatitis was less. She was
placed on IV PPI. The patient was seen in consultation by GI and infectious disease. Amoxicillin was reintroduced and the patient was able to tolerate it. She was discharged on Levaquin (through 08/05) and Amoxicillin (through ) as per ID.
Primary hyperparathyroidism with hypercalcemia: The patient's Cinacalcet was continued. On discharge the patient's calcium was normal after IV fluids and Lasix.
Discharge Plan
-
Patient Disposition: Fdc/SNF
Discharge Diagnosis/Procedures: Nausea and vomiting due to antibiotic intolerance, hypercalcemia due to primary hyperparathyroidism
Condition: Good
Diet: Diabetic, Carb Controlled
Activity: As tolerated
Driving Restrictions: Not until seen by your Dr
Blood Work: CMP and CBC in 1 week, prescription from PCP
Specialty Instructions: Weigh Daily- Call MD for wt gain/loss 3 lbs overnight/5 lbs in 1 week
Referrals:
Demetris Haynes MD [Family Provider, Internal Medicine] - in less than 1 week
Prescriptions:
New
amoxicillin 500 mg Capsule
1,000 mg PO Q8H Qty: 0 0RF
Rx Instructions:
through 08/06/25AM
levofloxacin 250 mg Tablet
250 mg PO DAILY Qty: 0 0RF
Rx Instructions:
through 08/05/25
magnesium oxide 400 mg (241.3 mg magnesium) Tablet
400 mg PO DAILY Qty: 0 0RF
Continued
omeprazole 20 mg Tablet,Delayed Release (Dr/Ec)
40 mg PO BID
furosemide [Lasix] 40 mg Tablet
40 mg PO DAILY
therapeutic multivitamin Tablet
1 tab PO DAILY
allopurinol 100 mg Tablet
100 mg PO DAILY
aspirin 81 mg Tablet,Delayed Release (Dr/Ec)
81 mg PO DAILY
guar gum Packet
1 tbsp PO DAILY
cyanocobalamin (vitamin B-12) 500 mcg Tablet
500 mcg PO DAILY
gabapentin 800 mg Tablet
800 mg PO HS
bupropion HCl [Wellbutrin XL] 150 mg Tablet Extended Release 24 Hr
150 mg PO DAILY
zonisamide 50 mg Capsule
50 mg PO DAILY
cinacalcet 60 mg Tablet
60 mg PO DAILY
cholecalciferol (vitamin D3) [Vitamin D3] 50 mcg (2,000 unit) Tablet
50 mcg PO DAILY
icosapent ethyl 1 gram capsule
2 g PO BID
zonisamide 100 mg Capsule
100 mg PO HS
Discontinued
atorvastatin [Lipitor] 80 mg Tablet
80 mg PO DAILY
clarithromycin 500 mg Tablet
500 mg PO BID
Rx Instructions:
for 7 day starting 07/19/25
Discharge Orders:
Discharge Patient (As Directed); Ordered 07/25/25
Ordered By: Harsha Novoa
Discharge Date and Time
Discharge Date/Time: 07/25/25 12:47
Print Language: BRUNEIAN
== END 2025-07-25 12:47 | DRG 641 ==
LOC: 2 SOUTH 18:28
PROVIDERS: Internal Medicine Gastroenterology; ADMITTING PHYSICIAN Internal Medicine; ATTENDING PHYSICIAN Internal Medicine; CONSULT PHYSICIAN Internal Medicine Infectious Disease; EMERGENCY PHYSICIAN Emergency Medicine; FAMILY PHYSICIAN Internal Medicine; OTHER PHYSICIAN Internal Medicine Gastroenterology
DX: E83.52 Hypercalcemia (principal); K25.9 Gastric ulcer, unspecified as acute or chronic, without hemorrhage or perforation; Z11.52 Encounter for screening for COVID-19; Z87.891 Personal history of nicotine dependence; B96.81 Helicobacter pylori [H. pylori] as the cause of diseases classified elsewhere; Z86.19 Personal history of other infectious and parasitic diseases; K26.9 Duodenal ulcer, unspecified as acute or chronic, without hemorrhage or perforation; Z87.11 Personal history of peptic ulcer disease; N18.32 Chronic kidney disease, stage 3b; E53.8 Deficiency of other specified B group vitamins; E66.09 Other obesity due to excess calories; G50.0 Trigeminal neuralgia; Z68.30 Body mass index [BMI] 30.0-30.9, adult; M10.9 Gout, unspecified; B02.9 Zoster without complications; G51.0 Bell's palsy; E11.22 Type 2 diabetes mellitus with diabetic chronic kidney disease; T37.8X5A Adverse effect of other specified systemic anti-infectives and antiparasitics, initial encounter; Z79.82 Long term (current) use of aspirin; Z79.899 Other long term (current) drug therapy
CPT/HCPCS: 74176; 76705; 80048; 80053; 80076; 81003; 81015; 82962; 83036; 83690; 83735; 84443; 84484; 85025; 85027; 87086; 87502; 87811; 93005; 96361; 96374; 96375; 96376; 97116; 97129; 97162; 97167; 97530; 97535; 99285